=== PATIENT | female | born 1970 | race Caucasian/White ===

== ENCOUNTER 2018-05-07 17:33 | Emergency (ER) | payer OTHER ==
[~2018-05-07] VITALS: Ht 154.9 cm; Wt 74.8 kg
== END 2018-05-07 19:30 | disposition home or self-care (01) ==
LOC: ER 17:33
DX: S80.02XA Contusion of left knee, initial encounter (principal); W18.39XA Other fall on same level, initial encounter; Y93.89 Activity, other specified; Y92.89 Other specified places as the place of occurrence of the external cause; Y99.8 Other external cause status